=== PATIENT | female | born 1960 | race Caucasian/White ===

== ENCOUNTER 2019-09-19 20:00 | Outpatient (CLI) | payer OTHER, SELFPAY | END 2019-09-19 20:01 | disposition home or self-care (01) | LOC: SLEEP 09-20 08:47 | PROVIDERS: Family Provider Internal Medicine; Visit Provider Internal Medicine | DX: G47.10 Hypersomnia, unspecified (principal) | CPT/HCPCS: 95810 ==

== ENCOUNTER 2021-10-25 14:12 | Outpatient (CLI) | payer OTHER, SELFPAY ==
--- NOTE | 2021-10-25 14:28 | MM_ITS ---
WS: [id number] DIAGNOSTIC BILATERAL DIGITAL BREAST TOMOSYNTHESIS MAMMOGRAPHY WITH CAD RIGHT breast ultrasound, limited HISTORY: FIBROUS BREAST LUMPS, pain at RIGHT nipple. COMPARISON: 01/14/2018 and 02/08/2014 TECHNIQUE: Bilateral craniocaudad, mediolateral oblique, and mediolateral views are submitted with to mosynthesis and SM. Spot compression RIGHT CC and MLO. Computer aided detection utilized. Breast composition: There are scattered areas of fibroglandular density. Dense band of fibroglandular tissue in the upper-outer quadrant of the RIGHT breast is similar to prior studies. Slightly more pr ominent but does improve with spot compression views. No abnormality is noted at the RIGHT nipple in the area of concern. No suspicious mass or calcifications. There are benign calcifications in each br east. RIGHT breast ultrasound, limited. Ultrasound is directed to the anterior RIGHT breast in the areolar region. There is no abnormality id entified. No soft tissue thickening, cystic or solid mass. MM/[place] [id number] IMPRESSION: BI-RADS: 2-Benign FOLLOW UP: 1 Year Follow-up
--- NOTE | 2021-10-25 15:32 | US_ITS ---
WS: [id number] DIAGNOSTIC BILATERAL DIGITAL BREAST TOMOSYNTHESIS MAMMOGRAPHY WITH CAD RIGHT breast ultrasound, limited HISTORY: FIBROUS BREAST LUMPS, pain at RIGHT nipple. COMPARISON: 01/14/2018 and 02/08/2014 TECHNIQUE: Bilateral craniocaudad, mediolateral oblique, and mediolateral views are submitted with to mosynthesis and SM. Spot compression RIGHT CC and MLO. Computer aided detection utilized. Breast composition: There are scattered areas of fibroglandular density. Dense band of fibroglandular tissue in the upper-outer quadrant of the RIGHT breast is similar to prior studies. Slightly more pr ominent but does improve with spot compression views. No abnormality is noted at the RIGHT nipple in the area of concern. No suspicious mass or calcifications. There are benign calcifications in each br east. RIGHT breast ultrasound, limited. Ultrasound is directed to the anterior RIGHT breast in the areolar region. There is no abnormality id entified. No soft tissue thickening, cystic or solid mass. US/US breast RT limited* [id number] IMPRESSION: BI-RADS: 2-Benign FOLLOW UP: 1 Year Follow-up
== END 2021-10-25 14:13 | disposition home or self-care (01) ==
LOC: RAD 14:12
PROVIDERS: Family Provider Internal Medicine; Visit Provider Nurse Practitioner Family
DX: N64.4 Mastodynia (principal); N63.10 Unspecified lump in the right breast, unspecified quadrant
CPT/HCPCS: 76642; 77062

== ENCOUNTER → 2022-05-02 11:05 | Outpatient (BNVA) | payer OTHER, SELFPAY | PROVIDERS: Family Provider Internal Medicine; PCP Clinical Nurse Specialist Adult Health; Visit Provider Clinical Nurse Specialist Adult Health | DX: G47.33 Obstructive sleep apnea (adult) (pediatric) (principal); E11.9 Type 2 diabetes mellitus without complications | CPT/HCPCS: 80053; 80061; 83036; 85025 ==

== ENCOUNTER → 2022-10-17 10:19 | Outpatient (BNVA) | payer OTHER, SELFPAY | PROVIDERS: Family Provider Internal Medicine; PCP Clinical Nurse Specialist Adult Health; Visit Provider Clinical Nurse Specialist Adult Health | DX: E11.9 Type 2 diabetes mellitus without complications (principal); E66.01 Morbid (severe) obesity due to excess calories; E78.2 Mixed hyperlipidemia; I10 Essential (primary) hypertension | CPT/HCPCS: 80053; 80061; 83036; 85025 ==

== ENCOUNTER → 2022-11-02 12:16 | Outpatient (BNVA) | payer OTHER, SELFPAY | PROVIDERS: Family Provider Internal Medicine; PCP Clinical Nurse Specialist Adult Health; Visit Provider Emergency Medicine | DX: R39.9 Unspecified symptoms and signs involving the genitourinary system (principal); N30.00 Acute cystitis without hematuria | CPT/HCPCS: 81000; 87086 ==

== ENCOUNTER → 2022-11-21 11:08 | Outpatient (BNVA) | payer OTHER, SELFPAY | PROVIDERS: Family Provider Internal Medicine; PCP Clinical Nurse Specialist Adult Health; Visit Provider Clinical Nurse Specialist Adult Health | DX: E11.9 Type 2 diabetes mellitus without complications (principal); R20.2 Paresthesia of skin; F43.21 Adjustment disorder with depressed mood | CPT/HCPCS: 82306; 82607 ==

== ENCOUNTER → 2023-01-09 09:19 | Outpatient (BNVA) | payer OTHER, SELFPAY | PROVIDERS: Family Provider Internal Medicine; PCP Clinical Nurse Specialist Adult Health; Visit Provider Clinical Nurse Specialist Adult Health | DX: R20.2 Paresthesia of skin (principal); E55.9 Vitamin D deficiency, unspecified | CPT/HCPCS: 82306; 82607 ==

== ENCOUNTER → 2023-03-03 08:02 | Outpatient (BNVA) | payer OTHER, SELFPAY | PROVIDERS: Family Provider Internal Medicine; PCP Clinical Nurse Specialist Adult Health; Visit Provider Clinical Nurse Specialist Adult Health | DX: E55.9 Vitamin D deficiency, unspecified (principal); E11.9 Type 2 diabetes mellitus without complications; R20.2 Paresthesia of skin | CPT/HCPCS: 80053; 82306; 82607; 83036; 85025 ==

== ENCOUNTER → 2023-09-07 11:11 | Outpatient (BNVA) | payer MEDICARE, SELFPAY | PROVIDERS: Family Provider Internal Medicine; PCP Clinical Nurse Specialist Adult Health; Visit Provider Clinical Nurse Specialist Adult Health | DX: E11.9 Type 2 diabetes mellitus without complications (principal); I10 Essential (primary) hypertension; E78.2 Mixed hyperlipidemia; E66.01 Morbid (severe) obesity due to excess calories | CPT/HCPCS: 80053; 80061; 83036; 84443; 85025 ==

== ENCOUNTER 2023-09-22 14:08 | Outpatient (CLI) | payer MEDICARE, SELFPAY ==
--- NOTE | 2023-09-22 14:00 | MM_ITS ---
WS: [id number] BILATERAL 3D TOMOSYNTHESIS DIGITAL SCREENING MAMMOGRAPHY WITH CAD CLINICAL INFORMATION: Screening for breast cancer HISTORY: Screening mammogram. No current complaints. COMPARISON: 10/25/2021 TECHNIQUE: Bilateral CC and MLO views. FINDINGS: Scattered fibroglandular densities bilaterally. No suspicious focal mass, asymmetry, calcifications, or architectural distortion. No evidence of malignancy. Punctate and lucent centered calcifications. Vascular calcifications. MM/[place] [id number] IMPRESSION: BI-RADS: 2-Benign FOLLOW UP: 1 Year Follow-up Recommend return to annual screening mammography.
== END 2023-09-22 14:09 | disposition home or self-care (01) ==
LOC: RAD 14:10
PROVIDERS: Family Provider Internal Medicine; PCP Clinical Nurse Specialist Adult Health; Visit Provider Clinical Nurse Specialist Adult Health
DX: Z12.31 Encounter for screening mammogram for malignant neoplasm of breast (principal); Z12.39 Encounter for other screening for malignant neoplasm of breast
CPT/HCPCS: 77063; 77067

== ENCOUNTER → 2023-10-07 08:48 | Outpatient (BNVA) | payer MEDICARE, SELFPAY | PROVIDERS: Family Provider Internal Medicine; PCP Clinical Nurse Specialist Adult Health; Visit Provider Nurse Practitioner Family | DX: L82.0 Inflamed seborrheic keratosis (principal); L82.1 Other seborrheic keratosis; D22.39 Melanocytic nevi of other parts of face; L73.8 Other specified follicular disorders | CPT/HCPCS: 17110; 99203 ==

== ENCOUNTER 2023-10-14 13:36 | Outpatient (CLI) | payer MEDICARE, SELFPAY ==
--- NOTE | 2023-10-14 13:41 | XR_ITS ---
WS: [id number] XR chest 2V* [id number] REASON FOR EXAM: abnormal quanteferon gold test FINDINGS: Moderate tortuosity and ectasia of the thoracic aorta. Normal heart size. Calcified granulomatous changes in the hilar and perihilar regions and lower lung ness. No acute/subacute pulmonary parenchymal or pleural abnormality. Mild changes of degenerative spondylosis in the lower thoracic spine. Rectangular manmade appearing density seen on the PA view overlying the lower right heart.. The densi ty cannot be identified on the lateral view. XR/XR chest 2V* [id number] IMPRESSION: No acute or subacute chest abnormality.
== END 2023-10-14 13:37 | disposition home or self-care (01) ==
PROVIDERS: PCP Clinical Nurse Specialist Adult Health; Visit Provider Clinical Nurse Specialist Adult Health
DX: R76.12 Nonspecific reaction to cell mediated immunity measurement of gamma interferon antigen response without active tuberculosis (principal); I77.810 Thoracic aortic ectasia; J84.10 Pulmonary fibrosis, unspecified; M47.814 Spondylosis without myelopathy or radiculopathy, thoracic region
CPT/HCPCS: 71046

== ENCOUNTER → 2023-11-17 11:36 | Outpatient (BNVA) | payer MEDICARE, SELFPAY | PROVIDERS: PCP Clinical Nurse Specialist Adult Health; Visit Provider Clinical Nurse Specialist Adult Health | DX: Z22.7 Latent tuberculosis (principal) | CPT/HCPCS: 80076 ==

== ENCOUNTER → 2023-12-17 10:12 | Outpatient (BNVA) | payer MEDICARE, SELFPAY | PROVIDERS: PCP Clinical Nurse Specialist Adult Health; Visit Provider Clinical Nurse Specialist Adult Health | DX: Z79.4 Long term (current) use of insulin (principal); Z22.7 Latent tuberculosis; E11.9 Type 2 diabetes mellitus without complications | CPT/HCPCS: 80053; 80076; 83036; 85025 ==

== ENCOUNTER → 2024-01-19 11:56 | Outpatient (BNVA) | payer MEDICARE, SELFPAY | DX: Z22.7 Latent tuberculosis (principal); E53.8 Deficiency of other specified B group vitamins | CPT/HCPCS: 80053; 82607 ==

== ENCOUNTER → 2024-02-09 09:57 | Outpatient (BNVA) | payer MEDICARE, SELFPAY | PROVIDERS: Visit Provider Student in an Organized Health Care Education/Training Program | DX: Z22.7 Latent tuberculosis (principal) | CPT/HCPCS: 36415; 80053; 85025; 99205 ==

== ENCOUNTER → 2024-07-28 08:30 | Outpatient (BNVA) | payer MEDICARE, SELFPAY | PROVIDERS: Visit Provider Internal Medicine | DX: E11.9 Type 2 diabetes mellitus without complications (principal); Z79.4 Long term (current) use of insulin; E78.2 Mixed hyperlipidemia | CPT/HCPCS: 99204 ==

== ENCOUNTER → 2024-09-13 10:00 | Outpatient (BNVA) | payer MEDICARE, SELFPAY | PROVIDERS: Visit Provider Internal Medicine | DX: E11.9 Type 2 diabetes mellitus without complications (principal); Z79.4 Long term (current) use of insulin; E78.2 Mixed hyperlipidemia | CPT/HCPCS: 36415; 80053; 80061; 82044; 83036; 99214 ==

== ENCOUNTER → 2024-10-05 09:31 | Outpatient (BNVA) | payer MEDICARE, SELFPAY | PROVIDERS: Visit Provider Nurse Practitioner Family | DX: L81.4 Other melanin hyperpigmentation (principal); D22.5 Melanocytic nevi of trunk; L82.0 Inflamed seborrheic keratosis; L29.89 Other pruritus; R20.9 Unspecified disturbances of skin sensation | CPT/HCPCS: 17110; 99213 ==

== ENCOUNTER 2025-02-01 14:29 | Outpatient (CLI) | payer MEDICARE, SELFPAY | END 2025-02-01 14:30 | disposition home or self-care (01) | LOC: LAB 02-04 07:29 | DX: N18.30 Chronic kidney disease, stage 3 unspecified (principal) | CPT/HCPCS: 80053 ==

== ENCOUNTER → 2025-02-09 13:58 | Outpatient (BNVA) | payer MEDICARE, SELFPAY | DX: N18.30 Chronic kidney disease, stage 3 unspecified (principal) | CPT/HCPCS: 80048 ==

== ENCOUNTER 2025-02-10 08:58 | Outpatient (CLI) | payer MEDICARE, SELFPAY ==
--- NOTE | 2025-02-10 09:20 | MM_ITS ---
WS: [id number] BILATERAL SCREENING DIGITAL TOMOSYNTHESIS MAMMOGRAM WITH CAD HISTORY: screening COMPARISON: 09/22/2023, 10/25/2021 Bilateral CC and MLO views with tomosynthesis and synthetic mammography submitted. Computer aided detection analyzed. Breast composition: There are scattered areas of fibroglandular density. No suspicious masses, microcalcifications or architectural distortion. Asymmetries and calcifications are stable within each breast. MM/MM scr BI tomosynthesis [id number] IMPRESSION: BI-RADS: 2 - Benign. FOLLOW UP: 1 Year Follow-up
== END 2025-02-10 08:59 | disposition home or self-care (01) ==
LOC: RAD 09:00
DX: Z12.31 Encounter for screening mammogram for malignant neoplasm of breast (principal); R92.323 Mammographic fibroglandular density, bilateral breasts; N92.1 Excessive and frequent menstruation with irregular cycle; N64.89 Other specified disorders of breast
CPT/HCPCS: 77063; 77067

== ENCOUNTER 2025-03-14 08:26 | Outpatient (CLI) | payer MEDICARE, SELFPAY ==
[2025-03-14 09:40] LABS: Alanine Aminotransferase 26 U/L (0-33); Albumin Level 4.3 g/dL (3.5-5.2); Alkaline Phosphatase 115 U/L (35-105); Blood Urea Nitrogen 20 mg/dL (8-23); Calcium 10.2 mg/dL (8.5-10.5); Carbon Dioxide 26 mmol/L (22-29); Chloride 102 mmol/L (98-107); Cholesterol 151 mg/dL (0-200); Globulin 2.9 g/dL (1.3-4.6); Glucose 189 mg/dL (65-115); HDL Cholesterol 38 mg/dL (60-100); Osmolality Calculated 294 mOsm/kg (285-295); Sodium 138 mmol/L (136-145); Total Protein 7.2 g/dL (6.6-8.7); Triglycerides 237 mg/dL (0-150)
[2025-03-14 09:42] LABS: Anion Gap 14.5 (5-19)
[2025-03-14 09:43] LABS: Aspartate Amino Transferase 24 U/L (0-32); Potassium 4.5 mmol/L (3.5-5.1)
[2025-03-14 10:16] LABS: Estmated Average Glucose 157; Hemoglobin A1C 7.1 % (4.0-6.0)
[2025-03-14 10:37] LABS: Creatinine Urine, Random 172 mg/dL (28-217); Microalbum Creatinine Ratio Ur 6 mg/dL (0-20)
== END 2025-03-14 08:27 | disposition home or self-care (01) ==
PROVIDERS: Visit Provider Internal Medicine
DX: E11.9 Type 2 diabetes mellitus without complications (principal); Z79.4 Long term (current) use of insulin; E78.2 Mixed hyperlipidemia
CPT/HCPCS: 36415; 80053; 80061; 82044; 83036